=== PATIENT | male | born 1965 | race Caucasian/White ===

== ENCOUNTER 2017-11-05 20:24 | Inpatient (IN) | payer BC, OTHER ==
[2017-11-05 21:47] LABS: ADD MAN DIFF? NO
[2017-11-05 21:49] LABS: WHITE BLOOD COUNT 17.5 10^3/ul (4.8-10.8)
[2017-11-05 21:49] LABS: ABNORMAL IP MESSAGE 1; BASOPHILS % 0.2 % (0.0-2.0); EOSINOPHILS % 0.1 % (0.0-7.0); HEMATOCRIT 43.6 % (42.0-52.0); HEMOGLOBIN 14.8 g/dl (14.0-18.0); LYMPHOCYTES # 0.5 10^3/ul (0.8-2.9); LYMPHOCYTES % 2.9 % (15.0-51.0); MEAN CORPUSCULAR HEMOGLOBIN 29.7 pg (29.0-33.0); MEAN CORPUSCULAR HGB CONC 33.9 g/dl (32.0-37.0); MEAN CORPUSCULAR VOLUME 87.4 fl (82.0-101.0); MEAN PLATELET VOLUME 8.8 fl (7.4-10.4); MONOCYTE # 0.2 10^3/ul (0.3-0.9); MONOCYTES % 1.1 % (0.0-11.0); NEUTROPHIL # 16.7 10^3/ul (1.6-7.5); NEUTROPHILS % 95.2 % (39.0-77.0); PLATELET COUNT 278 10^3/UL (140-415); POSITIVE DIFF @See below; RED BLOOD COUNT 4.99 10^6/ul (4.70-6.10); RED CELL DISTRIBUTION WIDTH 13.2 % (11.5-14.5)
[2017-11-05] MEDS: CEFTRIAXONE 1 GM/50 ML (PMX) 50 ML IVPB (22:04)
[2017-11-05] MEDS: SODIUM CHLORIDE 0.9% 1L BAG IV* (22:05)
[2017-11-05 22:08] LABS: ADD UMIC YES; UR ASCORBIC ACID NEGATIVE (NEGATIVE); UR BILIRUBIN (Dip) NEGATIVE (NEGATIVE); UR BLOOD (Dip) 1+ mg/dL (NEGATIVE); UR CLARITY CLEAR (CLEAR); UR COLOR YELLOW (YELLOW); UR GLUCOSE (Dip) NEGATIVE (NEGATIVE); UR KETONES (Dip) NEGATIVE (NEGATIVE); UR LEUKOCYTE ESTERASE (Dip) NEGATIVE Leu/ul (NEGATIVE); UR MUCUS FEW /HPF (NONE SEEN); UR NITRITE (Dip) NEGATIVE (NEGATIVE); UR RBC 0 /HPF (0-5); UR SPECIFIC GRAVITY (Dip) 1.021 (1.003-1.030); UR TOTAL PROTEIN (Dip) NEGATIVE (NEGATIVE); UR UROBILINOGEN (Dip) NEGATIVE (NEGATIVE); UR WBC 0 /HPF (0-5)
[2017-11-05 22:09] LABS: PROTIME 13.3 Sec (11.9-14.9)
[2017-11-05] MEDS: ONDANSETRON 4 MG INJ IV (22:46)
[2017-11-05] MEDS: HYDROmorphONE 1 MG/ML SYG IV (22:47)
[2017-11-05] MEDS: KETOROLAC 30 MG INJ IV (22:47)
[2017-11-05 22:48] LABS: LACTIC ACID 1.8 mmol/L (0.5-2.0)
[2017-11-05 22:49] LABS: ALANINE AMINOTRANSFERASE 36 IU/L (13-69); ALBUMIN 4.4 g/dl (3.3-4.9); ALBUMIN/GLOBULIN RATIO 1.22; ALKALINE PHOSPHATASE 60 IU/L (42-121); ANION GAP 16 (8-16); ASPARTATE AMINO TRANSFERASE 36 IU/L (15-46); BILIRUBIN,INDIRECT 0.6 mg/dl (0-1.1); BILIRUBIN,TOTAL 0.6 mg/dl (0.2-1.3); BLOOD UREA NITROGEN 31 mg/dl (7-20); CALCIUM 9.3 mg/dl (8.4-10.2); CARBON DIOXIDE 22 mmol/L (21-31); CHLORIDE 103 mmol/L (97-110); CREATININE 1.09 mg/dl (0.61-1.24); GLUCOSE 117 mg/dl (70-220); LIPASE 21 U/L (23-300); POTASSIUM 4.1 mmol/L (3.5-5.1); SODIUM 137 mmol/L (135-144)
[2017-11-05 23:00] LABS: TROPONIN-I < 0.010 ng/ml (0.000-0.120)
[2017-11-06 00:19] LABS: LACTIC ACID 1.1 mmol/L (0.5-2.0)
[2017-11-06] MEDS ORDERED: ONDANSETRON 4 MG INJ IV ×2 (03:30→04:00)
[2017-11-06] MEDS ORDERED: ACETAMINOPHEN 325 MG TAB PO (03:30)
[2017-11-06] MEDS ORDERED: ZOLPIDEM 5 MG TAB PO (04:00)
[2017-11-06] MEDS ORDERED: VANCOMYCIN IV PER PHARMACY XX (04:00)
[2017-11-06] MEDS ORDERED: POTASSIUM CHLORIDE 10 MEQ in SOD CHLORIDE 0.9% 1,000 ML IV (04:30)
[2017-11-06] MEDS: VANCOMYCIN 1 GM (PMX) 250 ML IVPB (05:18)
[2017-11-06] MEDS: SOD CHLORIDE 0.9% 1,000 ML IV ×2 (05:19→19:54)
[2017-11-06 06:24] LABS: ABNORMAL IP MESSAGE 1; ADD MAN DIFF? NO; BASOPHILS % 0.2 % (0.0-2.0); HEMATOCRIT 36.2 % (42.0-52.0); HEMOGLOBIN 12.6 g/dl (14.0-18.0); LYMPHOCYTES # 0.6 10^3/ul (0.8-2.9); LYMPHOCYTES % 2.4 % (15.0-51.0); MEAN CORPUSCULAR HEMOGLOBIN 30.7 pg (29.0-33.0); MEAN CORPUSCULAR HGB CONC 34.8 g/dl (32.0-37.0); MEAN CORPUSCULAR VOLUME 88.3 fl (82.0-101.0); MEAN PLATELET VOLUME 9.1 fl (7.4-10.4); MONOCYTE # 0.5 10^3/ul (0.3-0.9); NEUTROPHILS % 93.8 % (39.0-77.0); PLATELET COUNT 236 10^3/UL (140-415); POSITIVE DIFF @See below; RED CELL DISTRIBUTION WIDTH 13.5 % (11.5-14.5)
[2017-11-06 06:24] LABS: WHITE BLOOD COUNT 23.4 10^3/ul (4.8-10.8)
[2017-11-06 07:09] LABS: LACTIC ACID 1.3 mmol/L (0.5-2.0)
[2017-11-06] MEDS: ACETAMINOPHEN 325 MG TAB PO ×2 (11:15→21:27)
[2017-11-06] MEDS: VANCOMYCIN 1.5 GM in SOD CHLORIDE 0.9% 250 ML IVPB (15:35)
[2017-11-06] MEDS ORDERED: CEFTRIAXONE 1 GM INJ IM (22:00)
[2017-11-07] MEDS: CEFTRIAXONE 1 GM/50 ML (PMX) 50 ML IVPB (01:36)
[2017-11-07 02:02] LABS: ADD MAN DIFF? NO
[2017-11-07 02:04] LABS: WHITE BLOOD COUNT 15.8 10^3/ul (4.8-10.8)
[2017-11-07 02:04] LABS: ABNORMAL IP MESSAGE 1; BASOPHILS % 0.2 % (0.0-2.0); HEMATOCRIT 36.6 % (42.0-52.0); HEMOGLOBIN 12.7 g/dl (14.0-18.0); LYMPHOCYTES # 0.6 10^3/ul (0.8-2.9); LYMPHOCYTES % 3.7 % (15.0-51.0); MEAN CORPUSCULAR HEMOGLOBIN 30.2 pg (29.0-33.0); MEAN CORPUSCULAR HGB CONC 34.7 g/dl (32.0-37.0); MEAN CORPUSCULAR VOLUME 86.9 fl (82.0-101.0); MEAN PLATELET VOLUME 8.7 fl (7.4-10.4); MONOCYTE # 0.2 10^3/ul (0.3-0.9); MONOCYTES % 1.5 % (0.0-11.0); NEUTROPHIL # 14.8 10^3/ul (1.6-7.5); NEUTROPHILS % 93.9 % (39.0-77.0); PLATELET COUNT 194 10^3/UL (140-415); POSITIVE DIFF @See below; RED BLOOD COUNT 4.21 10^6/ul (4.70-6.10); RED CELL DISTRIBUTION WIDTH 13.6 % (11.5-14.5)
[2017-11-07] MEDS: VANCOMYCIN 1.5 GM in SOD CHLORIDE 0.9% 250 ML IVPB ×2 (03:38→14:31)
[2017-11-07] MEDS: ACETAMINOPHEN 325 MG TAB PO (05:44)
[2017-11-07 06:00] LABS: ADD MAN DIFF? NO
[2017-11-07 06:22] LABS: ABNORMAL IP MESSAGE 1; BASOPHILS % 0.1 % (0.0-2.0); HEMATOCRIT 38.1 % (42.0-52.0); HEMOGLOBIN 13.5 g/dl (14.0-18.0); LYMPHOCYTES # 0.5 10^3/ul (0.8-2.9); LYMPHOCYTES % 3.7 % (15.0-51.0); MEAN CORPUSCULAR HEMOGLOBIN 30.9 pg (29.0-33.0); MEAN CORPUSCULAR HGB CONC 35.4 g/dl (32.0-37.0); MEAN CORPUSCULAR VOLUME 87.2 fl (82.0-101.0); MEAN PLATELET VOLUME 9.3 fl (7.4-10.4); MONOCYTE # 0.4 10^3/ul (0.3-0.9); MONOCYTES % 3.1 % (0.0-11.0); NEUTROPHILS % 92.4 % (39.0-77.0); PLATELET COUNT 203 10^3/UL (140-415); POSITIVE DIFF @See below; RED BLOOD COUNT 4.37 10^6/ul (4.70-6.10); RED CELL DISTRIBUTION WIDTH 13.4 % (11.5-14.5)
[2017-11-07 06:22] LABS: WHITE BLOOD COUNT 14.1 10^3/ul (4.8-10.8)
[2017-11-07 06:29] LABS: ALANINE AMINOTRANSFERASE 166 IU/L (13-69); ALBUMIN 3.3 g/dl (3.3-4.9); ALBUMIN/GLOBULIN RATIO 1.03; ALKALINE PHOSPHATASE 79 IU/L (42-121); ANION GAP 11 (8-16); ASPARTATE AMINO TRANSFERASE 169 IU/L (15-46); BILIRUBIN,INDIRECT 0.2 mg/dl (0-1.1); BILIRUBIN,TOTAL 0.2 mg/dl (0.2-1.3); BLOOD UREA NITROGEN 11 mg/dl (7-20); CALCIUM 8.3 mg/dl (8.4-10.2); CARBON DIOXIDE 23 mmol/L (21-31); CHLORIDE 106 mmol/L (97-110); CREATININE 0.85 mg/dl (0.61-1.24); GLUCOSE 134 mg/dl (70-220); POTASSIUM 3.8 mmol/L (3.5-5.1); SODIUM 136 mmol/L (135-144); TOTAL PROTEIN 6.5 g/dl (6.1-8.1)
[2017-11-07] MEDS: IBUPROFEN 600 MG TAB PO (13:21)
[2017-11-08] MEDS: CEFTRIAXONE 2 GM/50 ML (PMX) 50 ML IVPB (01:28)
[2017-11-08] MEDS: ACETAMINOPHEN 325 MG TAB PO (01:34)
[2017-11-08 02:51] LABS: VANCOMYCIN,TROUGH 5.7 ug/ml (10.0-20.0)
[2017-11-08] MEDS: VANCOMYCIN 1.5 GM in SOD CHLORIDE 0.9% 250 ML IVPB ×2 (03:10→11:40)
[2017-11-08 06:16] LABS: ADD MAN DIFF? NO
[2017-11-08 06:20] LABS: WHITE BLOOD COUNT 9.7 10^3/ul (4.8-10.8)
[2017-11-08 06:20] LABS: BASOPHILS % 0.2 % (0.0-2.0); EOSINOPHILS # 0.1 10^3/ul (0.0-0.5); EOSINOPHILS % 0.6 % (0.0-7.0); HEMATOCRIT 38.3 % (42.0-52.0); HEMOGLOBIN 13.2 g/dl (14.0-18.0); LYMPHOCYTES # 0.9 10^3/ul (0.8-2.9); LYMPHOCYTES % 9.4 % (15.0-51.0); MEAN CORPUSCULAR HGB CONC 34.5 g/dl (32.0-37.0); MEAN PLATELET VOLUME 9.6 fl (7.4-10.4); MONOCYTE # 0.5 10^3/ul (0.3-0.9); MONOCYTES % 4.7 % (0.0-11.0); NEUTROPHIL # 8.2 10^3/ul (1.6-7.5); NEUTROPHILS % 84.6 % (39.0-77.0); PLATELET COUNT 212 10^3/UL (140-415); RED CELL DISTRIBUTION WIDTH 13.6 % (11.5-14.5)
[2017-11-08 06:52] LABS: ALANINE AMINOTRANSFERASE 214 IU/L (13-69); ALBUMIN 3.5 g/dl (3.3-4.9); ALBUMIN/GLOBULIN RATIO 1.06; ALKALINE PHOSPHATASE 136 IU/L (42-121); ANION GAP 10 (8-16); ASPARTATE AMINO TRANSFERASE 158 IU/L (15-46); BILIRUBIN,INDIRECT 0.2 mg/dl (0-1.1); BILIRUBIN,TOTAL 0.2 mg/dl (0.2-1.3); BLOOD UREA NITROGEN 9 mg/dl (7-20); CALCIUM 8.6 mg/dl (8.4-10.2); CARBON DIOXIDE 23 mmol/L (21-31); CHLORIDE 109 mmol/L (97-110); CREATININE 0.86 mg/dl (0.61-1.24); GLUCOSE 121 mg/dl (70-220); SODIUM 138 mmol/L (135-144); TOTAL PROTEIN 6.8 g/dl (6.1-8.1)
[2017-11-08] MEDS: BARIUM SULF 2% 450 ML BTL (BERRY SMOOTHIE) PO (11:46)
[2017-11-08] MEDS: SOD CHLORIDE 0.9% 100 ML (13:53)
[2017-11-08] MEDS: IOHEXOL 300MG/ML 150 ML BTL (14:10)
[2017-11-09] MEDS: CEFTRIAXONE 2 GM/50 ML (PMX) 50 ML IVPB (01:24)
[2017-11-09 05:29] LABS: ADD MAN DIFF? NO
[2017-11-09 05:35] LABS: BASOPHILS % 0.2 % (0.0-2.0); EOSINOPHILS # 0.1 10^3/ul (0.0-0.5); EOSINOPHILS % 1.5 % (0.0-7.0); HEMATOCRIT 39.5 % (42.0-52.0); HEMOGLOBIN 13.7 g/dl (14.0-18.0); LYMPHOCYTES # 1.4 10^3/ul (0.8-2.9); LYMPHOCYTES % 17.6 % (15.0-51.0); MEAN CORPUSCULAR HEMOGLOBIN 30.1 pg (29.0-33.0); MEAN CORPUSCULAR HGB CONC 34.7 g/dl (32.0-37.0); MEAN CORPUSCULAR VOLUME 86.8 fl (82.0-101.0); MEAN PLATELET VOLUME 9.3 fl (7.4-10.4); MONOCYTE # 0.8 10^3/ul (0.3-0.9); MONOCYTES % 9.3 % (0.0-11.0); NEUTROPHIL # 5.7 10^3/ul (1.6-7.5); NEUTROPHILS % 70.4 % (39.0-77.0); PLATELET COUNT 253 10^3/UL (140-415); RED BLOOD COUNT 4.55 10^6/ul (4.70-6.10); RED CELL DISTRIBUTION WIDTH 13.4 % (11.5-14.5)
[2017-11-09 06:07] LABS: ALANINE AMINOTRANSFERASE 184 IU/L (13-69); ALBUMIN 3.4 g/dl (3.3-4.9); ALBUMIN/GLOBULIN RATIO 0.89; ALKALINE PHOSPHATASE 171 IU/L (42-121); ANION GAP 12 (8-16); ASPARTATE AMINO TRANSFERASE 93 IU/L (15-46); BILIRUBIN,INDIRECT 0.3 mg/dl (0-1.1); BILIRUBIN,TOTAL 0.3 mg/dl (0.2-1.3); BLOOD UREA NITROGEN 13 mg/dl (7-20); CALCIUM 8.8 mg/dl (8.4-10.2); CARBON DIOXIDE 27 mmol/L (21-31); CHLORIDE 106 mmol/L (97-110); CREATININE 0.91 mg/dl (0.61-1.24); GLUCOSE 110 mg/dl (70-220); POTASSIUM 3.6 mmol/L (3.5-5.1); SODIUM 141 mmol/L (135-144); TOTAL PROTEIN 7.2 g/dl (6.1-8.1)
[2017-11-10] MEDS: CEFTRIAXONE 2 GM/50 ML (PMX) 50 ML IVPB ×2 (00:10→16:32)
[2017-11-10 05:39] LABS: ADD MAN DIFF? NO
[2017-11-10 05:41] LABS: BASOPHIL # 0.1 10^3/ul (0.0-0.1); BASOPHILS % 0.8 % (0.0-2.0); EOSINOPHILS # 0.2 10^3/ul (0.0-0.5); EOSINOPHILS % 2.3 % (0.0-7.0); HEMATOCRIT 41.2 % (42.0-52.0); HEMOGLOBIN 14.4 g/dl (14.0-18.0); LYMPHOCYTES # 1.8 10^3/ul (0.8-2.9); MEAN CORPUSCULAR HEMOGLOBIN 30.3 pg (29.0-33.0); MEAN CORPUSCULAR VOLUME 86.7 fl (82.0-101.0); MEAN PLATELET VOLUME 8.9 fl (7.4-10.4); NEUTROPHIL # 6.2 10^3/ul (1.6-7.5); NEUTROPHILS % 65.3 % (39.0-77.0); PLATELET COUNT 283 10^3/UL (140-415); RED BLOOD COUNT 4.75 10^6/ul (4.70-6.10); RED CELL DISTRIBUTION WIDTH 13.2 % (11.5-14.5)
[2017-11-10 05:41] LABS: WHITE BLOOD COUNT 9.5 10^3/ul (4.8-10.8)
[2017-11-10 06:14] LABS: ALANINE AMINOTRANSFERASE 161 IU/L (13-69); ALBUMIN 3.3 g/dl (3.3-4.9); ALBUMIN/GLOBULIN RATIO 0.97; ALKALINE PHOSPHATASE 136 IU/L (42-121); ANION GAP 12 (8-16); ASPARTATE AMINO TRANSFERASE 71 IU/L (15-46); BILIRUBIN,INDIRECT 0.2 mg/dl (0-1.1); BILIRUBIN,TOTAL 0.2 mg/dl (0.2-1.3); BLOOD UREA NITROGEN 19 mg/dl (7-20); CARBON DIOXIDE 25 mmol/L (21-31); CHLORIDE 106 mmol/L (97-110); CREATININE 0.86 mg/dl (0.61-1.24); GLUCOSE 102 mg/dl (70-220); POTASSIUM 4.2 mmol/L (3.5-5.1); SODIUM 139 mmol/L (135-144); TOTAL PROTEIN 6.7 g/dl (6.1-8.1)
[2017-11-10] MEDS ORDERED: LIDOCAINE 100 MG SYRINGE (10:34)
[2017-11-10] MEDS ORDERED: FENTAnyl 50 MCG/ML VIAL (10:34)
[2017-11-10] MEDS ORDERED: PROPOFOL 20 ML (10:35)
[2017-11-10] MEDS: LACTOBACILLUS RHAMNOSUS CAP PO (12:36)
== END 2017-11-10 18:28 | disposition home or self-care (01) | DRG 872 ==
LOC: 6WM 11-08 20:04 → E/R 20:24 → 6WM 11-06 03:28
PROC: B24BZZ4 Ultrasonography of Heart with Aorta, Transesophageal (ICD-10-PCS; principal; 2017-11-10 10:30)
DX: A40.0 Sepsis due to streptococcus, group A (principal); L03.116 Cellulitis of left lower limb; L03.115 Cellulitis of right lower limb; E86.0 Dehydration; E66.9 Obesity, unspecified; R59.0 Localized enlarged lymph nodes; R74.0 Nonspecific elevation of levels of transaminase and lactic acid dehydrogenase [LDH]; Z68.34 Body mass index [BMI] 34.0-34.9, adult
CPT/HCPCS: 36415; 71045; 74177; 80053; 80202; 81001; 83605; 83690; 83735; 84484; 85025; 85610; 85730; 86850; 86900; 86901; 87040; 87086; 93005; 93306; 93312; 93320; 93325; 96361; 96365; 96375; 99291-25; G0378